=== PATIENT | male | born 1990 | race Caucasian/White ===

== ENCOUNTER 2019-06-05 17:16 | Emergency (ER) | payer BC, OTHER ==
--- NOTE | 2019-06-05 17:37 | EDM.PDOC ---
ED HPI GENERAL MEDICAL PROBLEM - General Chief Complaint: Respiratory Problem Stated Complaint: R SIDE RIB PAIN Time Seen by Provider: 06/05/19 17:25 Source of Information: Reports: Patient, Family History Limitations: Reports: No Limitations - History of Present Illness INITIAL COMMENTS - FREE TEXT/NARRATIVE: patient just with right-sided rib pain with a cough and a area of tenderness to the right lateral rib cage. History of smoking and does Vape. onset of cold symptoms and a cough about 3 or 4 days ago. Green phlegm. No fevers chills or sweats. Had a runny nose and little bit of a sore throat which has gotten better. Number and is been working a lot in [place] and having to move a lot of heavy objects like bathtubs and showers and other heavy things and thought he might of pulled something injuring his right lateral ribs. Had a coughing spell where he felt near faint and dizzy no syncope however. No palpitations. No nausea vomiting or abdominal pain. No PE risk factors no lower extremity swelling. Onset: Sudden Duration: Day(s):, Getting Worse Location: Reports: Chest Quality: Reports: Sharp, Stabbing Severity: Moderate Improves with: Reports: None Worsens with: Reports: Breathing, Movement Associated Symptoms: Reports: Chest Pain, Cough, cough w sputum, Shortness of Breath. 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 Right Chest Pain Score (Numeric/FACES): 8 - Related Data Allergies Allergy/AdvReac Type Severity Reaction Status Date / Time No Known Allergies Allergy Verified 06/05/19 17:24 Home Meds: Home Meds Naproxen [Naprosyn] 500 mg PO BID #20 tablet 06/05/19 [Rx] Orphenadrine [Norflex] 100 mg PO BID PRN #14 tab 06/05/19 [Rx] Past Medical History - Past Health History Medical/Surgical History: Denies Medical/Surgical History Social & Family History - Tobacco Use Smoking Status *Q: Current Every Day Smoker Years of Tobacco use: 5 Packs/Tins Daily: 1 ED ROS GENERAL - Review of Systems Review Of Systems: See Below Constitutional: Denies: Fever, Chills, Diaphoresis Respiratory: Reports: Shortness of Breath, Cough, Sputum Cardiovascular: Reports: Chest Pain, Lightheadedness. Denies: Dyspnea on Exertion, PND GI/Abdominal: Reports: No Symptoms. Denies: Abdominal Pain, Diarrhea, Nausea, Vomiting : Denies: Dysuria Musculoskeletal: Reports: Muscle Pain. Denies: Back Pain Neurological: Reports: Dizziness. Denies: Headache, Syncope Psychiatric: Reports: No Symptoms ED EXAM, GENERAL - Physical Exam Exam: See Below Exam Limited By: No Limitations General Appearance: Alert, WD/WN, Mild Distress, Moderate Distress Throat/Mouth: Normal Inspection, Normal Oropharynx Head: Atraumatic Neck: Supple. No: Lymphadenopathy (L) Respiratory/Chest: No Respiratory Distress, Lungs Clear, Normal Breath Sounds, Other (feels like there might be some subcutaneous air around the tenderness to the right lateral rib cage with reproducible pain pattern.). No: Pleural Rub Cardiovascular: Normal Peripheral Pulses, Regular Rate, Rhythm, No Edema, No Gallop Peripheral Pulses: 3+: Radial (R) GI/Abdominal: Normal Bowel Sounds, Soft, Non-Tender, No Distention Extremities: Normal Inspection Neurological: Alert, Oriented Psychiatric: Normal Affect, Normal Mood Skin Exam: Warm, Dry Course - Vital Signs Text/Narrative:: examination, chest x-ray, patient has reproducible right-sided chest wall pain rule out bronchitis or pneumonia versus rib fracture with pneumothorax with associated subcutaneous air. Doubt PE or cardiac etiology as the chest pain is reproducible along with a productive cough with a smoking history. Last Recorded V/S: Last Vital Signs Temp 97.7 F 06/05/19 17:24 Pulse 70 06/05/19 17:24 Resp 16 06/05/19 17:24 BP 120/68 06/05/19 17:24 Pulse Ox 100 06/05/19 17:24 - Orders/Labs/Meds Orders: Active Orders 24 hr Category Date Time Status Chest 2V [CR] Stat Exams 06/05/19 17:37 Ordered - Radiology Interpretation Free Text/Narrative:: PA and lateral chest x-ray reviewed and showed normal cardiac light, no pleural effusion or infiltrate, no signs of any pneumothorax, hemothorax, no obvious rib fractures noted. - Re-Assessments/Exams Free Text/Narrative Re-Assessment/Exam: 06/05/19 18:51 no acute findings on chest x-ray suspect musculoskeletal strain from lifting along with some early bronchitis. We'll treat him with Naprosyn, Norflex, Departure - Departure Time of Disposition: 18:57 Disposition: Home, Self-Care 01 Condition: Good Clinical Impression: Chest wall muscle strain - Discharge Information *PRESCRIPTION DRUG MONITORING PROGRAM REVIEWED*: Not Applicable *COPY OF PRESCRIPTION DRUG MONITORING REPORT IN PATIENT JR: Not Applicable Prescriptions: Naproxen [Naprosyn] 500 mg PO BID #20 tablet Orphenadrine [Norflex] 100 mg PO BID PRN #14 tab PRN Reason: Muscle Spasm Instructions: Muscle Strain Referrals: PCP,None [Primary Care Provider] - Forms: ED Department Discharge Additional Instructions: rest, try to quit smoking. Take medications as directed. Suspect musculoskeletal strain, no signs of pneumonia. Avoid any heavy bending lifting or straining over the next several days, return to the emergency department however if any increasing shortness of breath, persistent pain or worsening pain, more short of breath, fevers, worse - My Orders Last 24 Hours: My Active Orders 06/05/19 17:37 Chest 2V [CR] Stat - Assessment/Plan Last 24 Hours: My Active Orders 06/05/19 17:37 Chest 2V [CR] Stat
--- NOTE | 2019-06-06 16:01 | CR ---
Chest: PA and lateral views of the chest were obtained. Comparison: Prior chest x-ray of 05/31/10. Heart size and mediastinum are normal. Lungs are clear. Bony structures are within normal limits for the patient's age. Impression: 1. Nothing acute is appreciated on two-view chest x-ray. Diagnostic code #1
== END 2019-06-05 19:10 | disposition home or self-care (01) ==
LOC: JD.ED 17:16
DX: S29.011A Strain of muscle and tendon of front wall of thorax, initial encounter (principal); F17.210 Nicotine dependence, cigarettes, uncomplicated; F17.290 Nicotine dependence, other tobacco product, uncomplicated; X50.0XXA Overexertion from strenuous movement or load, initial encounter; Y93.89 Activity, other specified; Y92.89 Other specified places as the place of occurrence of the external cause; Y99.0 Civilian activity done for income or pay
CPT/HCPCS: 71046; 71046-26; 99283; 99284-25